=== PATIENT | female | born 1945 | race Caucasian/White ===

== ENCOUNTER 2017-02-15 16:28 | Outpatient (CLI) | payer MEDICARE, OTHER ==
[2017-02-15 13:13] LABS: BASOPHILS # (AUTO) 0.1 10^3/uL (0.0-0.1); BASOPHILS % (AUTO) 1.2 %; EOSINOPHILS # (AUTO) 0.1 10^3/uL (0.0-0.7); EOSINOPHILS % (AUTO) 1.9 %; HCT - HEMATOCRIT 39.5 % (37.0-47.0); HGB - HEMOGLOBIN 13.3 g/dL (12.0-16.0); LYMPHOCYTES # (AUTO) 1.5 10^3/uL (1.5-3.5); LYMPHOCYTES % (AUTO) 21.4 %; MEAN CORPUSCULAR HEMOGLOBIN 30.7 pg (27.0-31.0); MEAN CORPUSCULAR HGB CONC 33.7 g/dL (32.0-36.0); MEAN CORPUSCULAR VOLUME 91.2 fL (81.0-99.0); MEAN PLATELET VOLUME 8.3 fL (7.9-10.8); MONOCYTES # (AUTO) 0.6 10^3/uL (0.0-1.0); MONOCYTES % (AUTO) 8.3 %; NEUTROPHILS # (AUTO) 4.6 10^3/uL (1.5-6.6); NEUTROPHILS % (AUTO) 67.2 %; NUCLEATED RED BLOOD CELLS AUTO 0.2 /100WBC; RED BLOOD COUNT 4.34 10^6/uL (4.20-5.40); RED CELL DISTRIBUTION WIDTH 13.7 % (12.0-15.0); UNCORRECTED WHITE BLOOD COUNT 6.8 x10^3/uL; WHITE BLOOD COUNT 6.8 x10^3/uL (4.8-10.8)
[2017-02-15 13:31] LABS: ALBUMIN/GLOBULIN RATIO 1.7 (1.0-2.2); BILIRUBIN,TOTAL 0.4 mg/dL (0.2-1.0); BUN - BLOOD UREA NITROGEN 15 mg/dL (6-20); CALCIUM 9.8 mg/dL (8.5-10.3); CARBON DIOXIDE - CO2 28 mmol/L (21-32); CHLORIDE 100 mmol/L (101-111); CHOL/HDL RATIO 3.1 (<4.4); CHOLESTEROL 199 mg/dL; CREATININE 0.5 mg/dL (0.4-1.0); GFR - MDRD 121 (>89); GLUCOSE 97 mg/dL (70-100); HDL CHOLESTEROL 65 mg/dL; LDL/HDL RATIO 1.8 (<4.4); SODIUM 136 mmol/L (135-145); TRIGLYCERIDES 79 mg/dL; VLDL CHOLESTEROL 16 mg/dL
[2017-02-15 14:01] LABS: HEMOGLOBIN A1C 0.46 g/dL
== END 2017-02-15 16:29 | disposition home or self-care (01) ==
LOC: LAB.WCP 16:28
PROVIDERS: ATTEND Family Medicine
DX: R73.01 Impaired fasting glucose (principal)
CPT/HCPCS: 36415; 80053; 80061; 83036; 85025

== ENCOUNTER 2017-08-12 09:49 | Emergency (ER) | payer MEDICARE, OTHER ==
[2017-08-12 09:57] VITALS: BP 166/81
--- NOTE | 2017-08-12 10:21 | ED Physician Documentation ---
History of Present Illness - Stated complaint Stated Complaint: POST OP CHECK - Chief complaint Chief Complaint: Ext Problem - Additonal information Additional information: hx from pt 71 f 2 days s/p carpal tunnel surgery done at [facility] was dced with a dressing her fingers have become swollen and a it tingly called her ortho surgeon office and he/she is not in and nurse rec pt go to in [facility] or ER on no fever no sig pain per pt she was going to be able to remove the dressing on Tuesday Review of Systems Constitutional: denies: Fever Musculoskeletal: reports: Other (swelling) PD PAST MEDICAL HISTORY - Past Medical History Past Medical History: Yes Cardiovascular: Hypertension, High cholesterol, Other Respiratory: Asthma Endocrine/Autoimmune: None GI: None : None HEENT: None Psych: Claustrophobia Musculoskeletal: None Derm: None - Past Surgical History Past Surgical History: Yes Ortho: Carpal Tunnel surgery - Present Medications Home Medications: Ambulatory Orders Medication Instructions Recorded Confirmed Lisinopril 5 mg PO DAILY 10/28/15 08/12/17 Simvastatin 5 mg PO DAILY 10/28/15 08/12/17 - Allergies Allergies/Adverse Reactions: Allergies Allergy/AdvReac Type Severity Reaction Status Date / Time amoxicillin Allergy Hives Verified 08/12/17 09:57 amoxicillin trihydrate * Allergy Hives Verified 08/12/17 09:57 [From Augmentin] potassium clavulanate * Allergy Hives Verified 08/12/17 09:57 [From Augmentin] - Social History Does the pt smoke?: No Smoking Status: Never smoker Does the pt drink ETOH?: Yes - Immunizations Immunizations are current?: No Immunizations: TDAP >10years/unknown, Other immun current PD ED PE NORMAL - Vitals Vital signs reviewed: Yes - Extremities Extremities: Other (LUE - bulky dressing to L wrist, finger midly edematous, warm brink cap refill, sensation to light touch intact motor intact, removed dressing which had become quite tight and underlying incision appears to be healing well s swelling erythema or dc, FA cmpt soft, pt feels a little better with dressing off) Results - Vitals Vitals: Vital Signs - 24 hr 08/12/17 09:54 Temperature 36.8 C Heart Rate 90 Respiratory 16 Rate Blood Pressure 166/81 H O2 Saturation 100 Oxygen O2 Source Room air PD MEDICAL DECISION MAKING - ED course ED course: exam not suggestive of infection DVT cmpt syndrome etc just seems dressing was tight and so fingers swelled, applied new looser dressing covered by a supportive velcro splint pt to call her ortho next week and ti return to the ER if further problems over the weekend Departure - Departure Disposition: Home, Self Care Clinical Impression: Visit for wound check Condition: Good Comments: Leave this new dressing on until Tuesday as advised by your research laboratory specialist Try and keep your hand elevated - wearing the sling may make that easier than holding your arm up all day Return if any further problems over the holiday weekend Otherwise contact your research laboratory specialist next week
== END 2017-08-12 10:32 | disposition home or self-care (01) ==
LOC: ED 09:49
DX: Z48.01 Encounter for change or removal of surgical wound dressing (principal); I10 Essential (primary) hypertension; E78.00 Pure hypercholesterolemia, unspecified; J45.909 Unspecified asthma, uncomplicated
CPT/HCPCS: 99282; 99283

== ENCOUNTER 2018-04-04 07:03 | Outpatient (CLI) | payer MEDICARE, OTHER ==
[2018-04-04 13:38] LABS: BASOPHILS # (AUTO) 0.1 10^3/uL (0.0-0.1); BASOPHILS % (AUTO) 0.9 %; EOSINOPHILS # (AUTO) 0.1 10^3/uL (0.0-0.7); HGB - HEMOGLOBIN 13.9 g/dL (12.0-16.0); LYMPHOCYTES # (AUTO) 1.3 10^3/uL (1.5-3.5); LYMPHOCYTES % (AUTO) 20.6 %; MEAN CORPUSCULAR HEMOGLOBIN 31.2 pg (27.0-31.0); MEAN CORPUSCULAR HGB CONC 34.1 g/dL (32.0-36.0); MEAN CORPUSCULAR VOLUME 91.5 fL (81.0-99.0); MONOCYTES # (AUTO) 0.5 10^3/uL (0.0-1.0); MONOCYTES % (AUTO) 7.6 %; NEUTROPHILS # (AUTO) 4.4 10^3/uL (1.5-6.6); NEUTROPHILS % (AUTO) 68.9 %; PLT - PLATELET COUNT 330 10^3/uL (130-450); RED BLOOD COUNT 4.47 10^6/uL (4.20-5.40); RED CELL DISTRIBUTION WIDTH 13.8 % (12.0-15.0); WHITE BLOOD COUNT 6.3 x10^3/uL (4.8-10.8)
[2018-04-04 14:03] LABS: ALBUMIN 4.2 g/dL (3.2-5.5); ALBUMIN/GLOBULIN RATIO 1.5 (1.0-2.2); ALKALINE PHOSPHATASE 64 IU/L (42-121); ALT ALANINE AMINOTRANSFERASE 23 IU/L (10-60); AST ASPARTATE AMINOTRANSFERASE 27 IU/L (10-42); BILIRUBIN,TOTAL 0.8 mg/dL (0.2-1.0); BUN - BLOOD UREA NITROGEN 13 mg/dL (6-20); CALCIUM 9.6 mg/dL (8.5-10.3); CARBON DIOXIDE - CO2 27 mmol/L (21-32); CHLORIDE 102 mmol/L (101-111); CHOL/HDL RATIO 3.1 (<4.4); CHOLESTEROL 199 mg/dL; CREATININE 0.5 mg/dL (0.4-1.0); GFR - MDRD 121 (>89); GLUCOSE 98 mg/dL (70-100); HDL CHOLESTEROL 65 mg/dL; LDL CHOLESTEROL,CALCULATED 119 mg/dL; LDL/HDL RATIO 1.8 (<4.4); SODIUM 136 mmol/L (135-145); VLDL CHOLESTEROL 15 mg/dL
[2018-04-04 14:30] LABS: PLATELET ESTIMATE, MANUAL NORMAL (130-450,000) (NORMAL); PLATELET MORPHOLOGY NORMAL APPEARANCE (NORMAL); RBC MORPHOLOGY (MULTIPLE) NORMAL APPEARANCE (NORMAL)
== END 2018-04-04 07:04 | disposition home or self-care (01) ==
LOC: LAB.WCP 07:03
PROVIDERS: ATTEND Family Medicine
DX: I10 Essential (primary) hypertension (principal); E78.5 Hyperlipidemia, unspecified
CPT/HCPCS: 36415; 80053; 80061; 83721; 84443; 85025

== ENCOUNTER 2019-05-22 08:00 | Outpatient (CLI) | payer MEDICARE, OTHER ==
[2019-05-22 12:37] LABS: BASOPHILS % (AUTO) 0.5 %; EOSINOPHILS # (AUTO) 0.2 10^3/uL (0.0-0.7); EOSINOPHILS % (AUTO) 1.7 %; HGB - HEMOGLOBIN 13.4 g/dL (12.0-16.0); LYMPHOCYTES # (AUTO) 1.4 10^3/uL (1.5-3.5); LYMPHOCYTES % (AUTO) 16.3 %; MEAN CORPUSCULAR HEMOGLOBIN 30.3 pg (27.0-31.0); MEAN CORPUSCULAR HGB CONC 31.8 g/dL (32.0-36.0); MEAN CORPUSCULAR VOLUME 95.2 fL (81.0-99.0); MEAN PLATELET VOLUME 9.7 fL (7.9-10.8); MONOCYTES # (AUTO) 0.7 10^3/uL (0.0-1.0); MONOCYTES % (AUTO) 8.2 %; NEUTROPHILS # (AUTO) 6.4 10^3/uL (1.5-6.6); NEUTROPHILS % (AUTO) 72.8 %; PLT - PLATELET COUNT 321 10^3/uL (130-450); RED BLOOD COUNT 4.42 10^6/uL (4.20-5.40); RED CELL DISTRIBUTION WIDTH 13.9 % (12.0-15.0); WHITE BLOOD COUNT 8.8 x10^3/uL (4.8-10.8)
[2019-05-22 12:45] LABS: ALBUMIN 4.4 g/dL (3.2-5.5); ALBUMIN/GLOBULIN RATIO 1.6 (1.0-2.2); ALKALINE PHOSPHATASE 66 IU/L (42-121); ALT ALANINE AMINOTRANSFERASE 24 IU/L (10-60); AST ASPARTATE AMINOTRANSFERASE 28 IU/L (10-42); BILIRUBIN,TOTAL 0.5 mg/dL (0.2-1.0); BUN - BLOOD UREA NITROGEN 13 mg/dL (6-20); CALCIUM 9.7 mg/dL (8.5-10.3); CARBON DIOXIDE - CO2 29 mmol/L (21-32); CHLORIDE 100 mmol/L (101-111); CHOL/HDL RATIO 2.8 (<4.4); CHOLESTEROL 196 mg/dL; CREATININE 0.5 mg/dL (0.4-1.0); GFR - MDRD 121 (>89); GLUCOSE 93 mg/dL (70-100); HDL CHOLESTEROL 70 mg/dL; LDL CHOLESTEROL,CALCULATED 115 mg/dL; LDL/HDL RATIO 1.6 (<4.4); SODIUM 138 mmol/L (135-145); TOTAL PROTEIN 7.1 g/dL (6.7-8.2); VLDL CHOLESTEROL 11 mg/dL
[2019-05-22 15:08] LABS: HB2 TOTAL 13.9 g/dL; HEMOGLOBIN A1C 0.5 g/dL; HEMOGLOBIN A1C % 5.4 % (4.6-6.2)
== END 2019-05-22 23:59 | disposition home or self-care (01) ==
LOC: LAB.WCP 08:00
PROVIDERS: ATTEND Family Medicine
DX: I10 Essential (primary) hypertension (principal); R73.01 Impaired fasting glucose; E78.5 Hyperlipidemia, unspecified
CPT/HCPCS: 36415; 80053; 80061; 83036; 83721; 84443; 85025

== ENCOUNTER 2019-11-03 07:39 | Emergency (ER) | payer MEDICARE, OTHER ==
--- NOTE | 2019-11-03 07:54 | ED Physician Documentation ---
PD HPI FOCAL NEURO - Stated complaint Stated Complaint: DIZZINESS - History obtained from History obtained from: Patient - History of Present Illness Timing - onset: Other (This is a very pleasant and very healthy 73-year-old woman who got up this morning at 3 AM and felt like she was off balance. She had some difficulty walking. It was worse if she turned her head especially to the left. There is no associated nausea. No headache. No other neurologic symptoms. She is almost completely back to normal now. Feels still just a little off and gets a wave of dizziness if she turns her head rapidly. She has never had this before.) Review of Systems Constitutional: denies: Fever, Chills Eyes: denies: Loss of vision, Decreased vision, Photophobia Ears: reports: Tinnitus/ringing (She has chronic tinnitus in the right ear which is a little worse today than normal). denies: Loss of hearing Nose: denies: Rhinorrhea / runny nose, Congestion, Epistaxis Cardiac: denies: Chest pain / pressure Respiratory: denies: Dyspnea GI: denies: Abdominal Pain, Nausea PD PAST MEDICAL HISTORY - Past Medical History Cardiovascular: Hypertension, High cholesterol, Other Respiratory: Asthma Endocrine/Autoimmune: None GI: None : None HEENT: None Psych: Claustrophobia Musculoskeletal: None Derm: None - Past Surgical History Past Surgical History: Yes Ortho: Carpal Tunnel surgery - Present Medications Home Medications: Ambulatory Orders Medication Instructions Recorded Confirmed Simvastatin 5 mg PO DAILY 10/28/15 11/03/19 lisinopriL [Lisinopril] 5 mg PO DAILY 10/28/15 11/03/19 - Allergies Allergies/Adverse Reactions: Allergies Allergy/AdvReac Type Severity Reaction Status Date / Time amoxicillin Allergy Hives Verified 11/03/19 07:58 amoxicillin trihydrate * Allergy Hives Verified 11/03/19 07:58 [From Augmentin] potassium clavulanate * Allergy Hives Verified 11/03/19 07:58 [From Augmentin] - Social History Does the pt smoke?: No Smoking Status: Never smoker Does the pt drink ETOH?: Yes - Immunizations Immunizations are current?: No Immunizations: TDAP >10years/unknown, Other immun current PD ED PE NORMAL - Vitals Vital signs reviewed: Yes - General General: Alert and oriented X 3, No acute distress - HEENT HEENT: PERRL, Other (She has just a wave of fast nystagmus on far leftward gaze, not on the right) - Neck Neck: Supple, no meningeal sign, No bony TTP - Cardiac Cardiac: RRR, No murmur - Respiratory Respiratory: No respiratory distress, Clear bilaterally - Abdomen Abdomen: Normal bowel sounds, Soft, Non tender - Back Back: No CVA TTP, No spinal TTP - Derm Derm: Normal color, Warm and dry - Neuro Neuro: Alert and oriented X 3, No motor deficit, No sensory deficit, Other (She has a fine tremor in both hands bilaterally which is not new per her and it seems symmetric) Eye Opening: Spontaneous Motor: Obeys Commands Verbal: Oriented GCS Score: 15 NIHSS - Time Time: 07:45 - Level of Consciousness Level of consciousness: (0) Alert, Keenly responsive LOC Questions: (0) Answers both Q's correct LOC Commands: (0) Performs both correctly - Gaze Best Gaze: (0) Normal - Visual Visual: (0) No loss - Facial Palsy Facial Palsy: (0) Normal, symmetrical movement - Motor Arms (both separate) Motor Arm (right): (0) No drift Motor Arm (left): (0) No drift - Motor Legs (both separate) Motor Leg (right): (0) No drift Motor Leg (left): (0) No drift - Limb Ataxia Limb Ataxia: (0) Absent - Sensory Sensory: (0) Normal - Best Language Best Language: (0) No aphasia - Dysarthria Dysarthria: (0) Normal - Extinction and Inattention (formally neg Extinction and inattention: (0) No abnormality - Total Score/Results Total Score/Result: 0 Results - Vitals Vitals: Vital Signs - 24 hr 11/03/19 07:54 Temperature 36.7 C Heart Rate 89 Respiratory 20 Rate Blood Pressure 185/103 H O2 Saturation 97 Oxygen O2 Source Room air PD MEDICAL DECISION MAKING - ED course ED course: 73-year-old woman with what seems like peripheral vertigo, she has a little bit of nystagmus on leftward gaze, stroke exam is negative. However Leeds-Hallpike is negative. That said her symptoms are mostly resolved. Further history obtained, it started while rolling over in bed. Given that and the normal exam and normal head CT very confident that this was a peripheral vertigo. She had no symptoms on discharge. Normal neurologic examination and we walked down the [place] and she is walking very fast and without any evidence of disequilibrium. Departure - Departure Disposition: 01 Home, Self Care Clinical Impression: Dysequilibrium Hypertension Qualifiers: Hypertension type: essential hypertension Qualified Code(s): I10 - Essential (primary) hypertension Condition: Good Record reviewed to determine appropriate education?: Yes Instructions: ED Vertigo Unspecified Comments: As discussed, everything points to this being a problem from the inner ear. If symptoms recur please return for reevaluation. Follow-up with your doctor, next available appointment.
[2019-11-03 07:58] VITALS: BP 185/103
--- NOTE | 2019-11-03 08:19 | CT Report ---
Reason: vertigo Procedure Date: 11/03/2019 Accession Number: [id number] / [id number] Procedure: CT - HEAD WO CPT Code: Final Report FULL RESULT: EXAM: CT HEAD EXAM DATE: 11/03/2019 08:09 AM. CLINICAL HISTORY: Vertigo. COMPARISON: None. TECHNIQUE: Multiaxial CT images were obtained from the foramen magnum to the vertex. Reformats: Sagittal and coronal. IV contrast: None. In accordance with CT protocol optimization, one or more of the following dose reduction techniques were utilized for this exam: automated exposure control, adjustment of mA and/or KV based on patient size, or use of iterative reconstructive technique. FINDINGS: Parenchyma: No intraparenchymal hemorrhage. No evidence of mass, midline shift, or CT findings of infarction. Mendoza-white differentiation is distinct. Extraaxial Spaces: Normal for age. No subdural or epidural collections identified. Ventricles: Normal in size and position. Sinuses and Orbits: Imaged paranasal sinuses, orbits, and mastoids show no significant abnormality. Bones: No evidence of fracture or calvarial defect. Other: None. IMPRESSION: No acute intracranial CT abnormality. RADIA
== END 2019-11-03 08:36 | disposition home or self-care (01) ==
LOC: ED 07:39
DX: R42 Dizziness and giddiness (principal); I10 Essential (primary) hypertension
CPT/HCPCS: 70450; 99283; 99284

== ENCOUNTER 2023-01-10 08:16 | Outpatient (CLI) | payer MEDICARE, OTHER ==
[2023-01-10 08:53] LABS: BASOPHILS # (AUTO) 0.1 10^3/uL (0.0-0.1); BASOPHILS % (AUTO) 0.8 %; EOSINOPHILS # (AUTO) 0.1 10^3/uL (0.0-0.7); EOSINOPHILS % (AUTO) 1.7 %; HGB - HEMOGLOBIN 13.2 g/dL (12.0-16.0); LYMPHOCYTES # (AUTO) 1.6 10^3/uL (1.5-3.5); LYMPHOCYTES % (AUTO) 20.9 %; MEAN CORPUSCULAR HEMOGLOBIN 30.2 pg (27.0-31.0); MEAN CORPUSCULAR HGB CONC 32.2 g/dL (32.0-36.0); MEAN CORPUSCULAR VOLUME 93.8 fL (81.0-99.0); MEAN PLATELET VOLUME 8.9 fL (7.9-10.8); MONOCYTES # (AUTO) 0.7 10^3/uL (0.0-1.0); MONOCYTES % (AUTO) 8.5 %; NEUTROPHILS # (AUTO) 5.2 10^3/uL (1.5-6.6); NEUTROPHILS % (AUTO) 67.8 %; PLT - PLATELET COUNT 295 10^3/uL (130-450); RED BLOOD COUNT 4.37 10^6/uL (4.20-5.40); RED CELL DISTRIBUTION WIDTH 14.2 % (12.0-15.0); WHITE BLOOD COUNT 7.6 x10^3/uL (4.8-10.8)
[2023-01-10 09:12] LABS: ALBUMIN 4.4 g/dL (3.2-5.5); ALBUMIN/GLOBULIN RATIO 1.9 (1.0-2.2); ALKALINE PHOSPHATASE 65 IU/L (42-121); ALT ALANINE AMINOTRANSFERASE 22 IU/L (10-60); AST ASPARTATE AMINOTRANSFERASE 25 IU/L (10-42); BILIRUBIN,TOTAL 0.4 mg/dL (0.2-1.0); BUN - BLOOD UREA NITROGEN 13 mg/dL (6-20); CALCIUM 9.6 mg/dL (8.5-10.3); CARBON DIOXIDE - CO2 28 mmol/L (21-32); CHLORIDE 102 mmol/L (101-111); CHOL/HDL RATIO 2.5 (<4.4); CHOLESTEROL 193 mg/dL; CREATININE 0.5 mg/dL (0.4-1.0); GFR - MDRD 119 (>89); GLUCOSE 124 mg/dL (70-100); HDL CHOLESTEROL 78 mg/dL; SODIUM 138 mmol/L (135-145); TOTAL PROTEIN 6.7 g/dL (6.7-8.2); TRIGLYCERIDES 39 mg/dL
[2023-01-10 09:22] LABS: THYROID STIMULATING HORMONE 1.42 uIU/mL (0.34-5.60)
[2023-01-10 10:41] LABS: ESTIMATED AVERAGE GLUCOSE 105 mg/dL (70-100); HEMOGLOBIN A1c% 5.3 % (4.27-6.07)
== END 2023-01-10 08:17 | disposition home or self-care (01) ==
LOC: LAB 08:16
PROVIDERS: ATTEND Physician Assistant
DX: I10 Essential (primary) hypertension (principal); E78.5 Hyperlipidemia, unspecified; R73.01 Impaired fasting glucose
CPT/HCPCS: 36415; 80053; 80061; 83036; 83721; 84443; 85025

== ENCOUNTER 2023-08-06 18:01 | Emergency (ER) | payer MEDICARE, OTHER ==
[2023-08-06] MEDS ORDERED: HYDROcod/ACETAM 5/325 MG TABLET PO STA (18:44)
--- NOTE | 2023-08-06 18:49 | ED Physician Documentation ---
PD HPI UPPER EXT INJURY - Stated complaint Stated Complaint: GLF/LT SHOULDER INJ - Chief complaint Chief Complaint: Trauma Ext - History obtained from History obtained from: Patient - History of Present Illness Location: Left, Shoulder Type of injury: Fall Where injury occurred: Home - Additonal information Additional information: 77-year-old female presents with left shoulder injury. The patient states that she was outside changing a light bulb that was lowered to the ground, she bent over to change a light bulb and lost her footing and fell backwards onto her left shoulder. She denies hitting her head, no neck or back injuries, no pain in her hips or pelvis. She has focal pain of the left shoulder. She did not take any medication or other treatment prior to arrival. PD PAST MEDICAL HISTORY - Past Medical History Past Medical History: Yes Cardiovascular: Hypertension, High cholesterol, Other Respiratory: Asthma Endocrine/Autoimmune: None GI: None : None HEENT: None Psych: Claustrophobia Musculoskeletal: None Derm: None - Past Surgical History Past Surgical History: Yes Ortho: Carpal Tunnel surgery - Present Medications Home Medications: Ambulatory Orders Medication Instructions Recorded Confirmed Simvastatin 5 mg PO DAILY 10/28/15 11/03/19 lisinopriL [Lisinopril] 5 mg PO DAILY 10/28/15 11/03/19 HYDROcod/ACET 5/325 Prepack 4 1 tablet PO Q6HR PRN #4 tablet 08/06/23 [NORCO 5/325 Prepack 4] HYDROcod/ACETAM 5/325 [[place] 5/325] 1 - 2 tablet PO Q6H PRN #14 tablet 08/06/23 - Allergies Allergies/Adverse Reactions: Allergies Allergy/AdvReac Type Severity Reaction Status Date / Time amoxicillin Allergy Hives Verified 08/06/23 18:05 amoxicillin trihydrate * Allergy Hives Verified 08/06/23 18:05 [From Augmentin] potassium clavulanate * Allergy Hives Verified 08/06/23 18:05 [From Augmentin] - Social History Does the pt smoke?: No Smoking Status: Never smoker Does the pt drink ETOH?: Yes Does the pt have substance abuse?: No - Immunizations Immunizations are current?: No Immunizations: TDAP >10years/unknown, Other immun current PD ED PE NORMAL - Vitals Vital signs reviewed: Yes - General General: Alert and oriented X 3, No acute distress, Well developed/nourished - HEENT HEENT: Atraumatic, Moist mucous membranes - Neck Neck: Supple, no meningeal sign, No bony TTP - Derm Derm: Normal color, Warm and dry - Extremities Extremities: Other (Tenderness with mild swelling and obvious fracture of the left humerus and tenderness into the left shoulder, no clavicle pain or tenderness. 2+ radial pulses, brisk cap refill.) - Neuro Neuro: Alert and oriented X 3 Eye Opening: Spontaneous Motor: Obeys Commands Verbal: Oriented GCS Score: 15 Results - Vitals Vitals: Vital Signs - 24 hr 08/06/23 18:05 Temperature 36.5 C Heart Rate 85 Respiratory 20 Rate Blood Pressure 160/86 H O2 Saturation 99 Oxygen O2 Source Room air - Rads (name of study) No standard instances Relevant Findings:: Final report received, See rad report PD Medical Decision Making - ED course Complexity details: reviewed results, re-evaluated patient, d/w patient, d/w family ED course: 77-year-old female presented after fall onto her left shoulder. She sustained no other injuries in the fall and the fall was mechanical fall. There were no prodromal symptoms. On exam, she has focal pain of the left proximal humerus into the left shoulder. We images area which shows a displaced fracture of the proximal humerus. We will place the patient in a coaptation splint and sling. She was given [place] 2 tablets here for pain control which she tolerated well. The patient will need to follow-up with Ortho on outpatient basis to soon as possible next week. In the meantime she should keep the splint in place and utilize sling, cool compress, pain control as needed. Departure - Departure Disposition: 01 Home, Self Care Clinical Impression: Proximal humeral fracture Qualifiers: Encounter type: initial encounter Fracture type: closed Fracture morphology: other fracture Fracture alignment: displaced Laterality: left Qualified Code(s): S42.292A - Other displaced fracture of upper end of left humerus, initial encounter for closed fracture Condition: Good Follow-Up: Jeremy Guzman MD [Provider Admit Priv/Credential] - Prescriptions: HYDROcod/ACET 5/325 Prepack 4 [NORCO 5/325 Prepack 4] 1 tablet PO Q6HR PRN #4 tablet PRN Reason: Pain >8 HYDROcod/ACETAM 5/325 [[place] 5/325] 1 - 2 tablet PO Q6H PRN #14 tablet PRN Reason: Pain Comments: You have a broken bone called the humerus where it attaches to the shoulder joint. We have placed you in a splint and sling which should remain in place until you follow-up with orthopedic surgeon next week. He will need to call the office for an appointment. In the meantime, use a cool compress on the area to help with pain and swelling in have also given you hydrocodone with acetaminophen for pain control. I am prescribing a short course of narcotic pain medication for you. These are potentially dangerous and addictive medications that should be used carefully. These medications may constipate you. Take an egso-klu-czhjqyv stool softener (docusate) twice daily with plenty of water while taking these medications. If you go 24 hours without a bowel movement, take fwhl-vgh-rfbdpzp miralax, per package instructions. Do not drink or drive while taking these medications. If you received narcotic or sedating medications while in the emergency department, do not drive for 24 hours. Store this medication in a safe, secure place and out of reach of children. It is a violation of federal law to give or sell this medication to another person or to use in a manner other than prescribed. The ED will not refill narcotic prescriptions, including prescriptions lost or stolen. To dispose of unwanted medications: 1. [facility] provides a [facility] box for medication in pill form only (no liquids) 8:00 am to 4:30 p.m. Tuesday-Tuesday in the lobby of the [facility], [address] [place] [address]. Empty pills into ziplock bag before disposal. Call [phone] for information. 2.[employer] is a free service available to all [facility] residents. Go to [email or web address] Note that many narcotic pain relievers also contain Tylenol/acetaminophen. Please ensure that your total dose of acetaminophen from all sources does not exceed 3 g (3000 mg) per day. Forms: PCP List
--- NOTE | 2023-08-06 18:54 | XRAY Report ---
PROCEDURE: Shoulder 2 View LT INDICATIONS: GLF onto brick-notable bruising/deform TECHNIQUE: 2 views of the shoulder were acquired. COMPARISON: None. FINDINGS: Bones: Moderately displaced fracture through the proximal diaphysis of the humerus with anterior dis placement of the distal fragment one shaft width anteriorly. Calcification superior to the humeral he ad is nonspecific and may represent hydroxyapatite deposition. Soft tissues: No suspicious soft tissue calcifications. The visualized lungs are within normal limi ts. IMPRESSION: Fracture through the proximal humeral diaphysis. Hydroxyapatite deposition. Reviewed by: Lio Henderson MD on 08/06/2023 5:53 PM AKST Approved by: Lio Henderson MD on 08/06/2023 5:53 PM [place] Station ID: [id number]
[2023-08-06] MEDS ORDERED: HYDROcod/ACET 5/325 Prepack 4 PO STA (20:12)
[2023-08-06 20:36] VITALS: BP 126/62; O2SAT 95
== END 2023-08-06 20:31 | disposition home or self-care (01) ==
LOC: ED 18:01
DX: S42.302A Unspecified fracture of shaft of humerus, left arm, initial encounter for closed fracture (principal); W18.39XA Other fall on same level, initial encounter; Y93.E9 Activity, other interior property and clothing maintenance
CPT/HCPCS: 73030; 99283; 99284; A9270

== ENCOUNTER 2023-08-13 13:30 | Outpatient (CLI) | payer MEDICARE, OTHER ==
--- NOTE | 2023-08-15 16:58 | XRAY Report ---
PROCEDURE: Shoulder 3 View LT INDICATIONS: LEFT HUMERUS FRACTURE TECHNIQUE: 3 views of the shoulder were acquired. COMPARISON: 08/06/2023 FINDINGS: Bones: Moderately displaced fracture through the proximal diaphysis of the humerus with posterior di splacement of the proximal humeral shaft relative to the humeral head. Degenerative changes of the gl enohumeral joint and acromioclavicular joint. Soft tissues: No suspicious soft tissue calcifications. The visualized lungs are within normal limi ts. IMPRESSION: Left proximal humerus fracture with no significant interval change in positioning. Reviewed by: Akira Morse on 08/15/2023 3:57 PM ALANA Approved by: Akira Morse on 08/15/2023 3:57 PM [facility] Station ID: [id number]
== END 2023-08-13 23:59 | disposition home or self-care (01) ==
LOC: DI.WOS 13:30
PROVIDERS: ATTEND Orthopaedic Surgery
DX: S42.202D Unspecified fracture of upper end of left humerus, subsequent encounter for fracture with routine healing (principal)

== ENCOUNTER 2023-08-21 07:14 | Emergency (ER) | payer MEDICARE, OTHER ==
[2023-08-21 07:33] VITALS: BP 198/91; O2SAT 99
--- NOTE | 2023-08-21 08:08 | ED Physician Documentation ---
PD HPI UPPER EXT INJURY - Stated complaint Stated Complaint: L ARM SWOLLEN - Chief complaint Chief Complaint: Ext Problem - History obtained from History obtained from: Patient - Additonal information Additional information: The patient comes to the emergency department chief complaint of left upper extremity swelling. She was seen on August 06 for a displaced proximal humerus fracture and was placed in a splint of the reverse sugar-tong bradycardia at that time. The patient on the followed up with Dr. Mayes of orthopedics and had repeat x-rays that did not show much interval change. The patient was kept in the splint but states over the last few days, the splint has migrated down and she has begun to have increased swelling in her hand and forearm. The patient has not changed the Gulshan bandage or otherwise altered the splint set up. She denies any new injury. She actually states she is requiring less pain medication and has only needed to leave these last couple of days, though she does take a dose of Vicodin occasionally. No other complaints at this time. PD PAST MEDICAL HISTORY - Past Medical History Past Medical History: Yes Cardiovascular: Hypertension, High cholesterol, Other Respiratory: Asthma Endocrine/Autoimmune: None GI: None : None HEENT: None Psych: Claustrophobia Musculoskeletal: None Derm: None - Past Surgical History Past Surgical History: Yes Ortho: Carpal Tunnel surgery - Present Medications Home Medications: Ambulatory Orders Medication Instructions Recorded Confirmed Simvastatin 5 mg PO DAILY 10/28/15 08/21/23 lisinopriL [Lisinopril] 5 mg PO DAILY 10/28/15 08/21/23 HYDROcod/ACETAM 5/325 [Transfer 5/325] 1 - 2 tablet PO Q6H PRN #14 tablet 08/06/23 08/21/23 HYDROcod/ACETAM 5/325 [Transfer 5/325] 1 - 2 tablet PO Q6H PRN #14 tablet 08/21/23 - Allergies Allergies/Adverse Reactions: Allergies Allergy/AdvReac Type Severity Reaction Status Date / Time amoxicillin Allergy Hives Verified 08/21/23 07:27 amoxicillin trihydrate * Allergy Hives Verified 08/21/23 07:27 [From Augmentin] potassium clavulanate * Allergy Hives Verified 08/21/23 07:27 [From Augmentin] - Social History Does the pt smoke?: No Smoking Status: Never smoker Does the pt drink ETOH?: Yes Does the pt have substance abuse?: No - Immunizations Immunizations are current?: No Immunizations: TDAP >10years/unknown, Other immun current - POLST Patient has POLST: No PD ED PE NORMAL - Vitals Vital signs reviewed: Yes - General General: Alert and oriented X 3, No acute distress, Well developed/nourished - HEENT HEENT: Atraumatic, EOMI, Moist mucous membranes - Neck Neck: Supple, no meningeal sign - Cardiac Cardiac: Strong equal pulses - Respiratory Respiratory: No respiratory distress - Derm Derm: Warm and dry, Other (Older appearing contusions involving the left upper arm and left chest wall, extending to a lesser extent distally to the forearm. No erythema or induration.) - Extremities Extremities: No deformity, Other (Reverse sugar-tong splint Has migrated several centimeters down from the apex of the L shoulder. Marked edema of left forearm and hand with moderate edema involving the entire left upper extremity proximal to that. Mild upper arm deformity.) - Neuro Neuro: Alert and oriented X 3, barrel loader 2-12 intact, No motor deficit, No sensory deficit, Normal speech - Psych Psych: Normal mood, Normal affect Results - Vitals Vitals: Vital Signs - 24 hr 08/21/23 07:23 Temperature 36.8 C Heart Rate 90 Respiratory 15 Rate Blood Pressure 198/91 H O2 Saturation 99 Oxygen O2 Source Room air Procedures - Splint (location) - Minor LUE Splint applied by: Tech Type of splint: Other (sling/shoulder immobilizer) Other: Patient tolerated well, No complications, Neurovascular intact, Sling provided PD Medical Decision Making - ED course Complexity details: reviewed old records, considered differential, d/w patient, d/w family, d/w senior sustainability consultant ED course: I discussed the case with Dr. Mayes, who is on-call for orthopedics. He reviewed the patient's x-rays from her last visit with him and stated that in the absence of new injury, the patient probably did not need repeat x-rays today. He did clear her to be switched over to a sling, though he has requested that she wear the sling is much as possible and avoid external rotation. She has an appointment with him next week. I have discussed this plan with the patient. She understands that other than changing her clothes or bathing, she should keep the sling in place. We have discussed not externally rotating to elevate the hand but rather, supporting under the elbow when she is supine with a pillow. The patient's hand swelling has visibly decreased during the patient's stay in the emergency department with the splint and associated wrapping off. I do not think she has a compartment syndrome and I suspect the swelling is secondary to the injury and wrapping. I have considered blood clot, though I think this is also less likely. I will refill the patient's Vicodin. We have discussed the usual indications for return. Departure - Departure Disposition: 01 Home, Self Care Clinical Impression: Left upper extremity swelling Proximal humerus fracture Qualifiers: Encounter type: sequela Fracture type: closed Fracture morphology: other fracture Fracture alignment: displaced Laterality: left Qualified Code(s): S42.292S - Other displaced fracture of upper end of left humerus, sequela Condition: Stable Instructions: ED Fx Shoulder Prescriptions: HYDROcod/ACETAM 5/325 [Transfer 5/325] 1 - 2 tablet PO Q6H PRN #14 tablet PRN Reason: Pain Comments: Your case has been discussed with Dr. Mayes of orthopedics. He has given the greenlight for you to be placed in a sling rather than the splint. You should strive to wear the sling at all times, with the exception of changing clothes or bathing. Please for now keep your elbow flexed to about 90 degrees and your arm rotated internally, or across her body. Dr. Mayes has requested that you do not externally rotate your arm, meaning that you should not rotate your hand out from your body, as this can disrupt proper healing. Dr. Downs will plan to see you next week as scheduled. A prescription for hydrocodone has been electronically transmitted to the [facility] pharmacy in [place] your request. He may continue to take this along with Aleve as needed. Forms: PCP List
== END 2023-08-21 08:23 | disposition home or self-care (01) ==
LOC: ED 07:14
DX: S42.292S Other displaced fracture of upper end of left humerus, sequela (principal); M79.89 Other specified soft tissue disorders; X58.XXXS Exposure to other specified factors, sequela; I10 Essential (primary) hypertension; E78.00 Pure hypercholesterolemia, unspecified; Z79.899 Other long term (current) drug therapy
CPT/HCPCS: 99282; 99284

== ENCOUNTER 2023-09-01 09:45 | Outpatient (CLI) | payer MEDICARE, OTHER ==
--- NOTE | 2023-09-01 13:22 | XRAY Report ---
PROCEDURE: Shoulder 3 View LT INDICATIONS: LEFT SHOULDER FRACTURE TECHNIQUE: 3 views of the shoulder were acquired. COMPARISON: Left shoulder radiographs 08/15/2023, 08/06/2023. FINDINGS: Bones: Transverse fracture of the proximal humerus diaphysis is stable. No dislocations. No suspici ous bony lesions. Visualized ribs appear intact. Soft tissues: No suspicious soft tissue calcifications. The visualized lungs are within normal limi ts. Calcification in the region of the rotator cuff insertion suggesting prior calcific tendinitis. IMPRESSION: Transverse fracture through the proximal humerus is stable. Suspect the sequelae of calcific tendinitis. Reviewed by: Juma Duffy MD on 09/01/2023 1:21 PM PST Approved by: Juma Duffy MD on 09/01/2023 1:[address] [facility] Station ID: [id number]
== END 2023-09-01 23:59 | disposition home or self-care (01) ==
LOC: DI.WOS 09:45
PROVIDERS: ATTEND Orthopaedic Surgery
DX: S42.292D Other displaced fracture of upper end of left humerus, subsequent encounter for fracture with routine healing (principal)